=== PATIENT | male | born 1950 | race Caucasian/White ===

== ENCOUNTER → 2016-11-26 | Outpatient (CLI) | payer MEDICARE, OTHER ==
[~2016-11-26] MED LIST: CARBIDOPA/LEVODOPA; FERROUS SU325 MG/TAB PO; FLOMAX 0.40.4 MG/CAP PO; FOLIC ACID; FROVA PO; IMITREX100 MG PO; NAPROXEN 3375 MG/TAB PO; NORCO 325 MG-51 TAB PO; PARCOPA 25/101 UDTAB NG; VICODIN 5/5001 UDTAB PO; VITAMIN C250250 MG PO
== END ==
LOC: MHCPAIN 10:45
DX: G89.29 Other chronic pain (principal); M47.27 Other spondylosis with radiculopathy, lumbosacral region; M53.3 Sacrococcygeal disorders, not elsewhere classified; M96.1 Postlaminectomy syndrome, not elsewhere classified; M48.06 Spinal stenosis, lumbar region
CPT/HCPCS: G0463

== ENCOUNTER → 2016-11-29 | Outpatient (CLI) | payer MEDICARE, OTHER | LOC: MHCPAIN 10:25 | DX: M47.817 Spondylosis without myelopathy or radiculopathy, lumbosacral region (principal); M96.1 Postlaminectomy syndrome, not elsewhere classified | CPT/HCPCS: J1100; Q9967 ==

== ENCOUNTER → 2016-12-10 | Outpatient (CLI) | payer MEDICARE, OTHER | LOC: MHCPAIN 07:45 | DX: G89.29 Other chronic pain (principal); M47.817 Spondylosis without myelopathy or radiculopathy, lumbosacral region; M54.16 Radiculopathy, lumbar region; M53.3 Sacrococcygeal disorders, not elsewhere classified; M96.1 Postlaminectomy syndrome, not elsewhere classified; Z87.891 Personal history of nicotine dependence | CPT/HCPCS: G0463 ==

== ENCOUNTER → 2017-01-07 | Outpatient (CLI) | payer MEDICARE, OTHER | LOC: MHCPAIN 11:41 | DX: G89.29 Other chronic pain (principal); M47.817 Spondylosis without myelopathy or radiculopathy, lumbosacral region; M54.16 Radiculopathy, lumbar region; M53.3 Sacrococcygeal disorders, not elsewhere classified; M96.1 Postlaminectomy syndrome, not elsewhere classified | CPT/HCPCS: G0463 ==

== ENCOUNTER 2017-01-20 03:16 | Emergency (ER) | payer MEDICARE, OTHER ==
[~2017-01-20] VITALS: Ht 182.9 cm; Wt 100.0 kg
[~2017-01-20 03:16] MED LIST changes: -NAPROXEN 3375 MG/TAB PO; -NORCO 325 MG-51 TAB PO
[2017-01-20 03:19] VITALS: BP 117/64; TEMP 98.2
[2017-01-20] MEDS ORDERED: NAPROXEN 3375 MG/TAB PO (03:51)
[2017-01-20] MEDS ORDERED: NORCO 325 MG-51 TAB PO (03:51)
[2017-01-20 04:29] VITALS: PULSE 80
== END 2017-01-20 04:27 | disposition home or self-care (01) ==
LOC: COL.ER 03:16
DX: M46.1 Sacroiliitis, not elsewhere classified (principal)
CPT/HCPCS: J1170; J1885

== ENCOUNTER → 2020-01-13 | Outpatient (CLI) | payer MEDICARE ==
[~2020-01-13] MED LIST changes: +NAPROXEN 3375 MG/TAB PO; +NORCO 325 MG-51 TAB PO
== END ==
LOC: COL.RAD 11:41
DX: M79.651 Pain in right thigh (principal)
CPT/HCPCS: J3301; Q9967